=== PATIENT | female | born 1965 | race Caucasian/White ===

== ENCOUNTER → 2022-09-06 09:54 | Outpatient (CLI) | payer MEDICARE, MEDICAID, SELFPAY ==
--- NOTE | 2022-09-06 10:01 | XR_ITS ---
FINAL REPORT CLINICAL HISTORY: b/l foot pain FINDINGS: Right foot Three views were obtained. There is no acute fracture or dislocation. There are mild degenerative changes. No soft tissue abnormality is identified. IMPRESSION: Mild degenerative changes. Reviewed, Interpreted and Dictated by Ki Cash III, MD Transcribed by Matilde Giron Authenticated and [facility]
--- NOTE | 2022-09-06 10:01 | XR_ITS ---
FINAL REPORT CLINICAL HISTORY: b/l foot pain FINDINGS: Left foot Three views were obtained. There is no acute fracture or dislocation. There are mild degenerative changes. No soft tissue abnormality is identified. IMPRESSION: Mild degenerative changes. Reviewed, Interpreted and Dictated by Ki Cash III, MD Transcribed by Matilde Giron Authenticated and [facility]
--- NOTE | 2022-09-06 10:01 | XR_ITS ---
FINAL REPORT CLINICAL HISTORY: b/l foot pain FINDINGS: Left ankle Three views were obtained. There is no acute fracture or dislocation. There are mild degenerative changes. No soft tissue abnormality is identified. IMPRESSION: Mild degenerative changes. Reviewed, Interpreted and Dictated by Ki Cash III, MD Transcribed by Matilde Giron Authenticated and [facility]
--- NOTE | 2022-09-06 10:01 | XR_ITS ---
FINAL REPORT CLINICAL HISTORY: b/l foot pain FINDINGS: Right ankle Three views were obtained. There is no acute fracture or dislocation. There are mild degenerative changes. No soft tissue abnormality is identified. IMPRESSION: Mild degenerative changes. Reviewed, Interpreted and Dictated by Ki Cash III, MD Transcribed by Matilde Giron Authenticated and [facility]
== END ==
PROVIDERS: PCP Nurse Practitioner Family; Visit Provider Nurse Practitioner Family
DX: M79.671 Pain in right foot (principal); M79.672 Pain in left foot; M25.571 Pain in right ankle and joints of right foot; M25.572 Pain in left ankle and joints of left foot
CPT/HCPCS: 73610; 73630

== ENCOUNTER → 2023-01-24 08:58 | Outpatient (CLI) | payer MEDICARE, MEDICAID, SELFPAY ==
--- NOTE | 2023-01-24 09:11 | XR_ITS ---
FINAL REPORT CLINICAL HISTORY: foot pain COMPARISON: 09/06/2022 FINDINGS: LEFT FOOT Three views demonstrate no acute fracture or dislocation. There are minimal hypertrophic changes over the intertarsal joint. No acute soft tissue abnormality is seen. IMPRESSION: Mild degenerative changes with no acute bony abnormality. Reviewed, Interpreted and Dictated by Gabo Jamison MD Transcribed by Chelsea Valladares Authenticated and [facility]
== END ==
PROVIDERS: PCP Nurse Practitioner Family; Visit Provider Podiatrist
DX: M77.42 Metatarsalgia, left foot (principal); M79.672 Pain in left foot
CPT/HCPCS: 73630